=== PATIENT | male | born 1985 | race Two or more races ===

== ENCOUNTER 2017-04-01 12:27 | Emergency (ER) | payer MEDICAID, OTHER ==
[~2017-04-01] VITALS: Ht 172.7 cm; Wt 95.3 kg
[2017-04-01 13:26] VITALS: BP 115/62
== END 2017-04-01 14:46 | disposition home or self-care (01) ==
LOC: ER 12:27
DX: J01.10 Acute frontal sinusitis, unspecified (principal)
CPT/HCPCS: 70450

== ENCOUNTER 2018-01-03 06:15 | Emergency (ER) | payer MEDICAID ==
[~2018-01-03] VITALS: Ht 175.3 cm; Wt 86.2 kg
[2018-01-03 07:12] VITALS: BP 124/80
[2018-01-03] MEDS ORDERED: IBUPROFEN 800 MG TAB PO ONE (07:30)
== END 2018-01-03 09:56 | disposition home or self-care (01) ==
LOC: ER 06:15
DX: S60.222A Contusion of left hand, initial encounter (principal); S60.221A Contusion of right hand, initial encounter; W23.0XXA Caught, crushed, jammed, or pinched between moving objects, initial encounter; Y93.89 Activity, other specified; Y99.8 Other external cause status; Y92.89 Other specified places as the place of occurrence of the external cause
CPT/HCPCS: 73120

== ENCOUNTER 2018-03-02 20:36 | Emergency (ER) | payer MEDICAID ==
[~2018-03-02] VITALS: Ht 175.3 cm; Wt 86.2 kg
[2018-03-02 21:26] LABS: Basophils # (auto) 0 uL; Basophils % (auto) 0.2 % (0.0-2.0); Eosinophils # (auto) 0.1 uL; Monocytes # (auto) 0.6 uL; Nucleated Red Blood Cells % 0.1 %; Red Cell Distribution Width 13.8 % (11.8-14.3)
[2018-03-02 21:28] LABS: Eosinophils % (auto) 0.5 % (0.0-7.0); Hemoglobin 18.9 g/dL (13.5-17.5); Lymphocytes # (auto) 1.5 uL; Lymphocytes % (auto) 11.2 % (10.0-50.0); Mean Corpuscular Hemoglobin 29.6 pg (28.0-32.0); Mean Corpuscular Hgb Conc. 33.5 g/dL (32.0-36.0); Mean Corpuscular Volume 88.2 fL (80.0-100.0); Monocytes % (auto) 4.6 % (0.0-12.0); Neutrophils # (auto) 10.8 uL; Neutrophils % (auto) 83.5 % (37.0-80.0); Platelet Count (auto) 334 10^3/uL (140-450); Red Blood Cells 6.39 10^6/uL (4.5-5.90)
[2018-03-02 21:31] LABS: Hematocrit 56.4 % (41.0-53.0)
[2018-03-02 21:51] LABS: Albumin 4.6 g/dL (3.4-5.0); Bilirubin, Total 0.4 mg/dL (0.2-1.0); Calcium 9.3 mg/dL (8.5-10.1); Potassium 3.6 mmol/L (3.5-5.1); Total Protein 8.9 g/dL (6.4-8.2)
[2018-03-02 22:02] LABS: INR 0.94 (0.9-1.15); Partial Thromboplastin Time 31.3 sec (22.64-33.71); Prothrombin Time 10.2 sec (9.37-12.3)
[2018-03-02] MEDS ORDERED: ONDANSETRON HCL 4 MG/2 ML VIAL IV ONE (23:15)
[2018-03-02] MEDS ORDERED: SODIUM CHLORIDE 0.9% 1,000 ML IV ONE ×2 (23:15→23:30)
[2018-03-02] MEDS ORDERED: NALBUPHINE HCL 10 MG/1ml INJECTION IV ONE (23:15)
[2018-03-03 02:03] VITALS: BP 127/71
[2018-03-03 02:05] LABS: Urine Bacteria NONE SEEN /hpf (None Seen); Urine Blood Negative /uL (Negative); Urine Mucus MODERATE (None Seen); Urine Specific Gravity 1.034 (1.001-1.035); Urine WBC 2 /hpf (0 - 3)
== END 2018-03-03 03:38 | disposition home or self-care (01) ==
LOC: ER 20:36
DX: K52.9 Noninfective gastroenteritis and colitis, unspecified (principal); E86.0 Dehydration
CPT/HCPCS: 36415; 74176; 80053; 80320; 81001; 82150; 83690; 85025; 85610; 85730; 96361; 96374; 96375; 99285; J2300; J2405; J7030

== ENCOUNTER 2018-09-28 14:33 | Emergency (ER) | payer MEDICAID ==
[~2018-09-28] VITALS: Ht 172.7 cm; Wt 81.6 kg
[2018-09-28 15:11] LABS: Basophils # (auto) 0 uL; Basophils % (auto) 0.1 % (0.0-2.0); Eosinophils # (auto) 0.1 uL; Monocytes # (auto) 0.7 uL
[2018-09-28 15:12] LABS: Eosinophils % (auto) 0.5 % (0.0-7.0); Hematocrit 53.3 % (41.0-53.0); Hemoglobin 17.8 g/dL (13.5-17.5); Lymphocytes % (auto) 7.8 % (10.0-50.0); Mean Corpuscular Hemoglobin 30.1 pg (28.0-32.0); Mean Corpuscular Hgb Conc. 33.4 g/dL (32.0-36.0); Mean Corpuscular Volume 89.9 fL (80.0-100.0); Monocytes % (auto) 5.5 % (0.0-12.0); Neutrophils # (auto) 11.2 uL; Neutrophils % (auto) 86.1 % (37.0-80.0); Platelet Count (auto) 292 10^3/uL (140-450); Red Blood Cells 5.93 10^6/uL (4.5-5.90); Red Cell Distribution Width 13.7 % (11.8-14.3)
[2018-09-28] MEDS ORDERED: PANTOPRAZOLE 40 MG/10 ML VIAL IV STA (15:12)
[2018-09-28] MEDS ORDERED: SODIUM CHLORIDE 0.9% 1,000 ML IVB ONE (15:12)
[2018-09-28] MEDS ORDERED: ONDANSETRON HCL 4 MG/2 ML VIAL IV ONE (15:15)
[2018-09-28] MEDS ORDERED: MORPHINE SULFATE 4 MG/ML SYR/VIAL IV ONE (15:15)
[2018-09-28 15:29] LABS: Albumin 3.7 g/dL (3.4-5.0); Magnesium 2.2 mg/dL (1.6-2.6); Potassium 3.8 mmol/L (3.5-5.1)
[2018-09-28 15:33] LABS: BUN/Creatinine Ratio 14.9; Bilirubin, Total 0.3 mg/dL (0.2-1.0); Total Protein 7.9 g/dL (6.4-8.2)
[2018-09-28 17:53] LABS: Alcohol, Urine < 3.0 mg/dL (0-5); Amphetamine Screen, Urine POSITIVE (NEGATIVE); Barbiturate Scree,Urine NEGATIVE (NEGATIVE); Benzodiazephine Screen, Urine NEGATIVE (NEGATIVE); Cannabinoid Screen, Urine POSITIVE (NEGATIVE); Cocaine Screen, Urine NEGATIVE (NEGATIVE); Opiate Scree,Urine POSITIVE (NEGATIVE); Phencyclidine Screen, Urine NEGATIVE (NEGATIVE)
[2018-09-28 18:20] LABS: Urine Amorphous Crystal FEW /hpf (None Seen); Urine Bacteria FEW /hpf (None Seen); Urine Blood Negative /uL (Negative); Urine Mucus FEW (None Seen); Urine WBC 46 /hpf (0 - 3)
[2018-09-28 18:35] VITALS: BP 114/62
== END 2018-09-28 18:42 | disposition home or self-care (01) ==
LOC: EDBD 14:33 → ER 14:33
DX: K29.70 Gastritis, unspecified, without bleeding (principal)
CPT/HCPCS: 36415; 76705; 80053; 80307; 81001; 82150; 83690; 83735; 85025; 94761; 96361; 96374; 96375; 99285; C9113; J2270; J2405; J7030